=== PATIENT | female | born 1950 | race Caucasian/White ===

== ENCOUNTER 2019-07-03 11:24 | Emergency (ER) | payer OTHER ==
--- NOTE | 2019-07-03 12:18 | UC ---
Complaint Female HPI - HPI Summary HPI Summary: Patient is a 69-year-old female presenting with daughter and grandson for burning with urination times one day. She believes she has a UTI. Has had a couple in the past but denies recurrent UTIs. Notes frequency as well. Notes pelvic pressure. Denies blood in the urine. Denies discharge. Denies fever, chills, nausea, vomiting. Has not taken anything for her symptoms. - History Of Current Complaint Chief Complaint: UCGU Stated Complaint: URINARY ISSUE Hx Obtained From: Patient Onset/Duration: Gradual Onset Pain Intensity: 0 - Allergies/Home Medications Allergies/Adverse Reactions: Allergies Allergy/AdvReac Type Severity Reaction Status Date / Time azithromycin Allergy Itching Verified 07/03/19 12:03 levofloxacin [From Levaquin] Allergy Hives Verified 07/03/19 12:03 lisinopril Allergy Hives Verified 07/03/19 12:03 Penicillins Allergy Swelling Verified 07/03/19 12:01 sitagliptin [From Januvia] Allergy Hives Verified 07/03/19 12:03 Home Medications: Home Medications Aspirin [Aspir-Low] 1 tab PO DAILY 07/03/19 [History Confirmed 07/03/19] Cholecalciferol TAB* [Vitamin D TAB*] 2,000 mg PO DAILY 07/03/19 [History Confirmed 07/03/19] Cyclobenzaprine (NF) [Cyclobenzaprine 5 MG (NF)] 1 tab PO TID 07/03/19 [History Confirmed 07/03/19] Furosemide TAB* [Lasix TAB*] 1 tab PO BID 07/03/19 [History Confirmed 07/03/19] Insulin Aspart [Novolog] 10 units SUBCUT TID 07/03/19 [History Confirmed ] Losartan/Hydrochlorothiazide [Losartan-Hctz 50-12.5 mg Tab] 1 tab PO DAILY 07/03 [History Confirmed 07/03/19] Metoprolol Tartrate 50 mg PO DAILY 07/03/19 [History Confirmed 07/03/19] Potassium Chlor TAB (NF) [Kaon-Cl-10 TAB (NF)] 1 tab PO DAILY 07/03/19 [History Confirmed 07/03/19] Pravastatin Sodium 20 mg PO DAILY 07/03/19 [History Confirmed 07/03/19] PMH/Surg Hx/FS Hx/Imm Hx Cardiovascular History: Hypertension - Surgical History Surgical History: Yes Surgery Procedure, Year, and Place: Knee replacement x2. cholycystectomy. spinal sx - Family History Known Family History: Positive: Non-Contributory - Social History Alcohol Use: Occasionally Substance Use Type: None Smoking Status (MU): Never Smoked Tobacco Review of Systems All Other Systems Reviewed And Are Negative: Yes Constitutional: Positive: Negative. Negative: Fever, Chills, Fatigue Respiratory: Positive: Negative. Negative: Shortness Of Breath, Cough Cardiovascular: Positive: Negative. Negative: Chest Pain Gastrointestinal: Positive: Abdominal Pain - Pelvic pressure. Negative: Vomiting, Diarrhea, Nausea Genitourinary: Positive: Dysuria, Frequency, Vaginal/Penile Burning. Negative: Hematuria, Urgency, Vaginal/Penile Itching, Vaginal/Penile Discharge, Vaginal/ Penile Pain, Ulceration/Lesion, Abnormal Bleeding Musculoskeletal: Positive: Negative Neurological: Positive: Negative Physical Exam Triage Information Reviewed: Yes Appearance: Well-Appearing, No Pain Distress, Well-Nourished Vital Signs: Initial Vital Signs Temp 97.9 F 07/03/19 12:09 Pulse 102 07/03/19 12:09 Resp 16 07/03/19 12:09 BP 139/70 07/03/19 12:09 Pulse Ox 97 07/03/19 12:09 Lab Results 07/03/19 Range/Units 12:23 POC Urine Color Yellow POC Urine Clarity Cloudy POC Urine pH 6.0 (5-9) POC Ur Specif [place] 1.015 (1.010-1.030) POC Urine Protein 2+ A (Negative) POC Ur Glucose (UA) Negative (Negative) POC Urine Ketones Negative (Negative) POC Urine Blood 3+ A (Negative) POC Urine Nitrite Negative (Negative) POC Urine Bilirubin Negative (Negative) POC Urine Urobilinogen 0.2 (Negative) POC U Leukocyte Esteras 1+ A (Negative) Vital Signs Reviewed: Yes Eyes: Positive: Conjunctiva Clear ENT: Positive: Hearing grossly normal Neck: Positive: Supple Respiratory Exam: Normal Respiratory: Positive: Lungs clear, Normal breath sounds, No respiratory distress Cardiovascular Exam: Normal Cardiovascular: Positive: RRR. Negative: Tachycardia Abdominal Exam: Normal Abdomen Description: Positive: Nontender, Soft. Negative: CVA Tenderness (R), CVA Tenderness (L) Neurological: Positive: Alert Psychological: Positive: Age Appropriate Behavior Complaint Female Dx - Course Course Of Treatment: Discussed positive UA with patient. I am treating with Doxy due to age, antibiotic allergies, and drug interactions with her current meds. Instructed patient follow-up with PCP if symptoms persist. Directed her to the ED if symptoms worsen. Patient voiced understanding and agreed with the treatment plan. - Differential Dx/Diagnosis Provider Diagnosis: Urinary tract infection Discharge ED - Sign-Out/Discharge Documenting (check all that apply): Patient Departure All imaging exams completed and their final reports reviewed: No Studies - Discharge Plan Condition: Stable Disposition: HOME Prescriptions: DOXYcycline CAP(*) [DOXYcycline 100MG CAP(*)] 100 mg PO BID #10 cap Patient Education Materials: Urinary Tract Infection in Women (ED) Referrals: No Primary Care Phys,NOPCP [Primary Care Provider] - Additional Instructions: As discussed, take Doxcycline for treatment of your urinary tract infection. Make sure you are drinking plenty of fluids. You may also take Azo over the counter to help relieve symptoms. Follow up with your PCP or the [facility] listed below if symptoms persist. Go to the emergency room if you experience worsening symptoms, including fever, chills, lower back pain, nausea, vomiting. - Billing Disposition and Condition Condition: STABLE Disposition: Home - Attestation Statements Provider Attestation: I was available for consult. This patient was seen by the [facility]. The patient was not presented to, seen by, or examined by me. -Alexx Status of Scribe Document: Ready
== END 2019-07-03 12:48 | disposition home or self-care (01) ==
LOC: UCEAST 11:24
DX: N39.0 Urinary tract infection, site not specified (principal); I10 Essential (primary) hypertension; Z88.0 Allergy status to penicillin; Z88.1 Allergy status to other antibiotic agents; Z88.8 Allergy status to other drugs, medicaments and biological substances; Z79.82 Long term (current) use of aspirin; Z96.659 Presence of unspecified artificial knee joint; Z79.899 Other long term (current) drug therapy
CPT/HCPCS: 81003; 87077; 87086; 87186; 99202; G0463